=== PATIENT | female | born 1990 | race Caucasian/White ===

== ENCOUNTER 2024-04-17 08:56 | Emergency (ER) | payer OTHER ==
[2024-04-17 09:27] VITALS: TEMP 97
--- NOTE | 2024-04-17 09:38 | ERPHSYRPT ---
- History of Present Illness Time Seen by Provider: 04/17/24 09:07 Source: patient Exam Limitations: no limitations Patient Subjective Stated Complaint: Pt reports she has had a migraine for approx 11 days, has a hx of migraines. She went to [facility] on 04/12/24 who gave her tylenol and ibuprofen pt later antinausea med and morphine per pt. Pt is scheduled to see Dr Andrea Harrell, neurologist, in [place] on 04/21/24. Triage Nursing Assessment: Pt alert and oriented x3. Respirations easy/nonlabored. Skin w/p/d. Ambulated to ED cot without difficulty. No active vomiting at this time. Accompanied by sister. Physician History: 34 years old female with history of migraines poorly controlled presented in the ER with complaints of 11 days history of frontal headache with associated nausea and multiple episodes of vomiting. Patient reports it comes and episodes with movements of head in a certain direction with associated moderate to severe pain and vomiting. Patient denies any abdominal pain, neck pain, fever chills or difficulty movements of neck. No visual disturbance, numbness tingling or focal weakness. Headache is similar to previous episodes but it is lasting a little longer than usual. Patient was seen at [facility] ER where she was given symptomatic treatment and discharge. Patient has appointment with neurology next week. Allergies/Adverse Reactions: acetaminophen [From Tylenol-Codeine #3] Adverse Reaction (Verified 04/17/24 09:11) Vomiting codeine [From Tylenol-Codeine #3] Adverse Reaction (Verified 04/17/24 09:11) Vomiting promethazine [From Phenergan] Adverse Reaction (Verified 04/17/24 09:11) Hives Home Medications: Lisinopril 10 mg [Zestril 10 MG] 1 tab PO DAILY 04/17/24 [History] Metformin HCl 500 mg [Glucophage 500 MG] 500 mg PO EVENING MEAL 04/17/24 [History] Omeprazole 40 mg PO DAILY 04/17/24 [History] SUMAtriptan succinate [Imitrex 50 mg] 1 tab PO DAILY 04/17/24 [History] Hx Tetanus, Diphtheria Vaccination/Date Given: Yes Hx Influenza Vaccination/Date Given: No Travel Risk - International Travel Have you traveled outside of the country in past 3 weeks: No - Emerging Infectious Disease Are you exhibiting symptoms associated with any current EIDs: No - Review of Systems Constitutional: Fatigue Eyes: No Symptoms Ears, Nose, & Throat: No Symptoms Respiratory: No Symptoms Cardiac: No Symptoms Abdominal/Gastrointestinal: Nausea, Vomiting Genitourinary Symptoms: No Symptoms Musculoskeletal: No Symptoms Skin: No Symptoms Neurological: Headache Psychological: No Symptoms Endocrine: No Symptoms - Past Medical History Pertinent Past Medical History: Yes Cardiac History: Hypertension Endocrine Medical History: Diabetes Type II Female Reproductive Disorders: Other Other Medical History: tubal blockage - Past Surgical History Past Surgical History: Yes Female Surgical History: Section - Female History Hx Last Menstrual Period: february 2024 Hx Now: No - Social History Smoking Status: Former smoker Exposure to second hand smoke: Yes - Social Determinants of Health Will the patient participate in the screening: Declined to provide - Nursing Vital Signs Nursing Vital Signs: Initial Vital Signs Temperature 97 F 04/17/24 09:11 Pulse Rate 90 04/17/24 09:11 Respiratory Rate 18 04/17/24 09:11 Blood Pressure 139/90 04/17/24 09:11 O2 Sat by Pulse Oximetry 98 04/17/24 09:11 Pain Scale Pain Intensity 5 - Physical Exam General Appearance: no apparent distress, alert Eye Exam: PERRL/EOMI Ears, Nose, Throat Exam: normal ENT inspection Neck Exam: normal inspection, non-tender, supple, full range of motion, No meningismus Respiratory Exam: normal breath sounds, lungs clear Cardiovascular Exam: regular rate/rhythm, normal heart sounds Gastrointestinal/Abdominal Exam: soft, normal bowel sounds, No tenderness Back Exam: normal inspection, normal range of motion Extremity Exam: normal inspection, normal range of motion Mental Status Exam: alert, oriented x 3, cooperative buyer tobacco head Exam: normal hearing, normal speech, PERRL Coordination/Gait Exam: normal finger to nose, normal gait, normal cerebellar function, negative Romberg's sign Motor/Sensory Exam: no motor deficit, no sensory deficit, no pronator drift, negative Babinski's sign DTR Exam: bicep (R): 2+, bicep (L): 2+, knee (R): 2+, knee (L): 2+ Skin Exam: normal color SpO2 Interpretation: normal SpO2: 98 O2 Delivery: Room Air Ordered Tests: Active Orders 24 hr Category Date Time Status IV Insertion STAT Care 04/17/24 09:34 Active Medication Summary Discontinued Medications Generic Name Dose Route Start Last Admin Trade Name Florin PRN Reason Stop Dose Admin Acetaminophen 975 mg 04/17/24 09:34 04/17/24 10:03 Acetaminophen 325 Mg Tablet PO 04/17/24 09:35 975 mg STAT ONE Administration Acetaminophen Confirm 04/17/24 09:59 Acetaminophen 325 Mg Tablet Administered 04/17/24 10:00 Dose 975 mg .ROUTE .STK-MED ONE Diphenhydramine HCl 50 mg 04/17/24 09:34 04/17/24 10:06 Diphenhydramine Hcl 50 Mg/Ml Vial IV 04/17/24 09:35 50 mg STAT ONE Administration Diphenhydramine HCl Confirm 04/17/24 09:59 Diphenhydramine Hcl 50 Mg/Ml Vial Administered 04/17/24 10:00 Dose 50 mg .ROUTE .STK-MED ONE Sodium Chloride 1,000 mls @ 999 mls/hr 04/17/24 09:34 04/17/24 11:43 Sodium Chloride 0.9% 1000 Ml IV 04/17/24 10:34 Infused .Q1H1M STA Infusion Sodium Chloride Confirm 04/17/24 10:00 Sodium Chloride 0.9% 1000 Ml Administered 04/17/24 10:01 Dose 1,000 mls @ ud .ROUTE .STK-MED ONE Ketorolac Tromethamine 30 mg 04/17/24 09:34 04/17/24 10:05 Ketorolac Tromethamine 30 Mg/Ml Inj IV 04/17/24 09:35 30 mg STAT ONE Administration Ketorolac Tromethamine Confirm 04/17/24 09:59 Ketorolac Tromethamine 30 Mg/Ml Inj Administered 04/17/24 10:00 Dose 30 mg .ROUTE .STK-MED ONE Metoclopramide HCl 10 mg 04/17/24 09:34 04/17/24 10:16 Metoclopramide Hcl 10 Mg/2 Ml Vial IV 04/17/24 09:35 10 mg STAT ONE Administration Metoclopramide HCl Confirm 04/17/24 09:59 Metoclopramide Hcl 10 Mg/2 Ml Vial Administered 04/17/24 10:00 Dose 10 mg .ROUTE .STK-MED ONE - Progress Progress: improved, re-examined Air Movement: good Progress Note: 04/17/24 12:06 34 years old is evaluated in the ER for frontal headache for 11 days. Patient has nonfocal neuroexam, no signs of meningismus. She is given fluids and symptomatic treatment with Reglan Benadryl and Toradol, on reevaluation her headache is remarkably improved and patient is feeling better. No vomiting while in the ER. I believe patient needs to be on prophylactic medication for migraines and does have appointment with neurology next week. I would give her Maxalt to go home to take as needed only. Discussed signs symptoms of worsening needing return to ER which she seems understanding. Do not think she needs imaging or any other workup and is stable for discharge. Blood Culture(s) Obtained: No Antibiotics given: No Counseled pt/family regarding: diagnosis, need for follow-up Medical Desision Making - Independent Historian Additional History obtained from: Family - Diagnostic Testing Diagnostic test were ordered, analyzed, and reviewed by me: No - Risk of complications The pt has a mod risk of morbidity or mortality based on: Need for prescription drug management - Departure Departure Disposition: Home Clinical Impression: Migraine Qualifiers: Migraine type: unspecified Status migrainosus presence: without status migrainosus Intractability: not intractable Qualified Code(s): G43.909 - Migraine, unspecified, not intractable, without status migrainosus Condition: Stable Critical Care Time: No Referrals: JOSE RUFF, [facility] [Primary Care Provider] - Follow up with PCP 1 day Instructions: Headache, Adult (DC) Additional Instructions: Take Tylenol/ibuprofen as needed along with Maxalt. Follow-up with primary care/neurology for reevaluation to be placed on prophylactic medications for migraine. Return to ER for intractable headache, numbness tingling focal weakness, visual disturbance, difficulty speech or difficulty movements of neck etc. Prescriptions: Rizatriptan Benzoate [Maxalt] 10 mg PO Q6-8HPRN PRN 5 Days #5 tablet MDD 3 PRN Reason: Pain
[2024-04-17] MEDS ORDERED: BENADRYL 50 MG/ML ONE (09:59)
[2024-04-17] MEDS ORDERED: TORAdol 30 mg Injection ONE (09:59)
[2024-04-17] MEDS ORDERED: TYLENOL 325 MG ONE (09:59)
[2024-04-17] MEDS ORDERED: Reglan 10 MG/2 ML ONE (09:59)
[2024-04-17] MEDS ORDERED: Sodium Chloride 0.9% 1000 ML 1,000 ML ONE (10:00)
[2024-04-17] MEDS: TYLENOL 325 MG PO ONE (10:03)
[2024-04-17] MEDS: TORAdol 30 mg Injection IV ONE (10:05)
[2024-04-17] MEDS: BENADRYL 50 MG/ML IV ONE (10:06)
[2024-04-17] MEDS: Sodium Chloride 0.9% 1000 ML 1,000 ML IV STA (10:09)
[2024-04-17] MEDS: Reglan 10 MG/2 ML IV ONE (10:16)
[2024-04-17 12:12] VITALS: O2SAT 98
[2024-04-17 12:16] VITALS: BP 112/67; PULSE 68; RESP 18
== END 2024-04-17 12:21 | disposition home or self-care (01) ==
LOC: ED 08:56
DX: G43.909 Migraine, unspecified, not intractable, without status migrainosus (principal); R11.2 Nausea with vomiting, unspecified; Z79.899 Other long term (current) drug therapy
CPT/HCPCS: 96360; 96374; 96375; 99284; J1200; J1885; A9270-GY